=== PATIENT | male | born 1985 | race Caucasian/White ===

== ENCOUNTER 2025-02-11 20:05 | Emergency (ER) | payer BC, SELFPAY ==
[2025-02-11 20:07] VITALS: BP 185/113
[2025-02-11 20:49] LABS: % Basophils 0.3 % (0-2); % Eosinophils 1.6 % (0-6); % Immature Granulocytes 0.3 % (0-0.5); % Lymphocytes 30.3 % (20.5-51.1); % Monocytes 6.4 % (1.7-9.3); % Neutrophils 61.1 % (42.2-75.2); Absolute Eosinophils 0.2 10^3/uL (0-0.7); Absolute Monocytes 0.6 10^3/uL (0.1-0.6); Hematocrit 43.3 % (39.0-52.0); Hemoglobin 14.7 g/dL (13.0-18.0); Mean Corp Hgb Conc. 33.9 g/dL (33.0-37.0); Mean Corpuscular Hgb 29.6 pg (27.0-31.0); Mean Corpuscular Volume 87.3 fL (80.0-94.0); Mean Platelet Volume 11.8 fL (7.4-10.4); Nucleated Red Blood Cells % 0 % (-); Platelet Count 192 10^3/uL (130-400); Red Blood Cell Count 4.96 10^6/uL (4.70-6.10); Red Cell Dist. Width 13.2 % (11.5-14.5); White Blood Cell Count 9.8 10^3/uL (4.8-10.8)
[2025-02-11 21:03] LABS: ALT (SGPT) 48 U/L (0-50); AST (SGOT) 26 U/L (17-59); Albumin 4.8 g/dl (3.5-5.0); Alkaline Phosphatase 128 U/L (38-126); Blood Urea Nitrogen 17 mg/dl (9-20); Calcium 9.9 mg/dl (8.4-10.2); Carbon Dioxide 26 mmol/L (22-30); Chloride 106 mmol/L (98-107); Glucose 104 mg/dl (70-99); Potassium 4.5 mmol/L (3.5-5.1); Sodium 141 mmol/L (135-145); Total Bilirubin 0.6 mg/dl (0.2-1.3); Total Protein 7.4 g/dl (6.3-8.2); eGFR > 60.00
[2025-02-11 21:14] LABS: Troponin I < 0.012 ng/ml
[2025-02-11 22:47] VITALS: BP 165/100
--- NOTE | 2025-02-11 23:47 | ED.GENMED ---
History of Present Illness
General
Chief Complaint: Blood Pressure Problem
Source: patient
Exam Limitations: none
Time Seen by Provider: 02/11/25 23:44
Nursing documentation reviewed up to this point in time: agreed with
History of Present Illness
History of Present Illness:
This is a 39-year-old male with past medical history of GERD who presents emergency department today with concerns of high blood pressure. Patient reports that he has no history of high blood pressure and reports that his has a cuff at home
because she had history of preeclampsia. Patient reports that he was stressed at home while he was taking care of his children and states that he started develop a headache. Patient states that he normally does not get headaches and so he decided
to check his blood pressure at that time and noticed it was in the 180s systolically at home. Patient states that his blood pressure usually goes down if it is elevated but states that this time it did not go down to him. His blood pressure at
baseline is usually in the 130s systolically. He does follow with his PCP who states that he has been watching his blood pressure and they have not decided to start a medication yet. Patient states that he started to feel little bit dizzy at that
time as well and states that this episode lasted around 10 minutes and then it was gone. Currently he is asymptomatic and he just feels a bit fatigued. He denies any chest pain, does note some mild upper abdominal discomfort which he attributes to
his indigestion/GERD symptoms. He denies any weakness one-sided the body versus other, any visual changes. Any neck pain
Past History
Past History
ED Past Medical History: None
Social History
Personal: Single
Living: with family
Employment: Employed
Review of Systems
Review of Systems
All Other Systems: ROS reviewed and negative except as documented in HPI and ROS
Phy Exam
Physical Exam
Physical Exam:
General: Patient is well appearing and in no acute distress; non-toxic
Skin: Warm and dry, no rashes or lesions
Head: Normocephalic, atraumatic
Eyes: Sclera non-icteric. EOMs intact.
Cardiac: Regular rate and rhythm, no murmur
Peripheral Vascular: No lower extremity swelling or edema
Pulm: Normal respiratory effort, no wheezes, rales, or rhonchi
Abdomen: No abdominal tenderness to palpation
Neuro: CN II-XII intact, no focal neurologic deficits.
Psychiatric: Appropriate mood and affect.
Course
Orders/Labs/Results
Orders:
Orders
02/11/25 20:09
Electrocardiogram (*1) Urgent
Reason for Study: Chest Pain
02/11/25 20:10
EKG- Treatment ONCE
02/11/25 20:30
Complete Blood Count/With Diff Urgent
Comprehensive Metabolic Panel Urgent
Troponin I Urgent
Abnormal Lab Results
02/11/25
20:30
MPV 11.8 H fL
(7.4-10.4)
Glucose 104 H mg/dl
(70-99)
Alkaline Phosphatase 128 H U/L
(38-126)
02/11/25 20:30
02/11/25 20:30
Vital Signs
Blood pressure: 146/76
Initial and Last Documented VS:
Initial Vital Signs
Temp Pulse Resp BP Pulse Ox
98.4 F 95 18 185/113 97
02/11/25 20:07 02/11/25 20:07 02/11/25 20:07 02/11/25 20:07 02/11/25 20:07
Last Documented Vital Signs
Temp Pulse Resp BP Pulse Ox
98.4 F 87 16 153/86 98
02/11/25 20:07 02/12/25 00:43 02/12/25 00:43 02/12/25 00:43 02/12/25 00:43
MDM/Problems Addressed
Differential Diagnosis Includes:
essential hypertension, tension headache, migraine headache
MDM/Problems Addressed:
This is a 39-year-old male with past medical history of GERD who presents emergency department today with concerns of high blood pressure. Patient reports that he has no history of high blood pressure and reports that his has a cuff at home
because she had history of preeclampsia. Patient reports that he was stressed at home while he was taking care of his children and states that he started develop a headache. He checked his pressure and it was elevated. His symptoms have since
resolved without intervention. In the emergency department, his blood pressure came down without intervention. Patient states that his blood pressure has been elevated in the past and he is monitoring it with his primary care provider and they
have not started to start any medication yet. I discussed pros and cons of starting medication today in the ER however patient states that he is a pretty responsive primary care provider so he will call his primary later today for an appointment.
Did discuss taking a blood pressure log at home. No signs of end organ damage today on blood work, troponin undetectable, EKG normal sinus rhythm with no ischemic changes. Patient stable for discharge.
Chronic conditions affecting care:
GERD
*Pulse Oximetry
Patient hypoxic: no
*Critical Care Note
Total Time (30-74mins, 75-104mins- exclusive of procedures): Not Applicable
Data Reviewed
Review of Other/Old Records Reveals: Records (Reviewed previous ER physician documentation 12/01/2011 patient seen for foreign body sensation in eye, no hospital discharge summaries to review )
ED Attending Note
-
Portions of this chart may have been created with voice recognition software.� Occasional wrong word or��sound alike� substitutions may have occurred due to the inherent limitations of voice recognition software.
Discharge Plan
Departure
Patient Disposition: Home (Routine Discharge)
Date of Disposition: 02/12/25
Time of Disposition: 00:06
Patient with high blood pressure during this ER visit?: Yes
Condition: Good
Discharge Problem:
Essential hypertension
Instructions: High Blood Pressure (DC), BLOOD PRESSURE
Prescriptions:
No Action
sulfacetamide sodium 1 DROP drops
10 ml OP QID Qty: 1 0RF
Rx Instructions:
1-2 drops in affected eye four times a day x 5 days
Referrals:
Conner Phan, [Family Provider] -
Activity Restrictions/Additional Instructions:
Your CMP and CBC blood work are unremarkable. Your troponin cardiac enzyme is undetectable. Your EKG shows normal sinus rhythm with no concerning changes.
Please call your primary care provider to schedule a follow up appointment.
Please keep a log of your blood pressure. Please check your blood pressure once daily preferably in the morning in a quiet calm environment.
PLEASE RETURN TO EMERGENCY DEPARTMENT SHOULD YOU DEVELOP PERSISTENT HEADACHE, INTRACTABLE NAUSEA OR VOMITING, CHEST PAIN, SHORTNESS OF BREATH, WEAKNESS IN ONE-SIDED BODY VERSUS OTHER, NUMBNESS OR TINGLING, FAINTING SPELLS, OR ANY OTHER SIGNS OR
SYMPTOMS WORRISOME TO YOU.
Interventions
Interventions:
*Risk Screen - Suicide Last Done: 02/11/25 20:09
*General Assessment Last Done: 02/11/25 20:09
*Neglect/Abuse Screening Last Done: 02/11/25 20:09
*ED- Fall Risk Assessment Last Done: 02/12/25 00:47
*ED COVID-19 Vaccine History Last Done: 02/11/25 20:09
*Nursing Disposition Last Done: 02/12/25 00:47
ED- Cardiac Assessment Last Done: 02/12/25 00:46
ED- Neurological Assessment Last Done: 02/12/25 00:46
ED- Pulmonary Assessment Last Done: 02/12/25 00:46
Discharge Date and Time
Discharge Date/Time: 02/12/25 00:48
Print Language: CENTRAL AFRICAN
[2025-02-12 00:43] VITALS: BP 153/86
== END 2025-02-12 00:48 | disposition home or self-care (01) ==
LOC: EMR 20:05
PROVIDERS: Student in an Organized Health Care Education/Training Program; EMERGENCY PHYSICIAN Emergency Medicine; FAMILY PHYSICIAN Family Medicine
DX: I10 Essential (primary) hypertension (principal); R51.9 Headache, unspecified; R53.83 Other fatigue; K30 Functional dyspepsia; K21.9 Gastro-esophageal reflux disease without esophagitis; Z73.3 Stress, not elsewhere classified
CPT/HCPCS: 99283; 80053; 84484; 85025; 93005

== ENCOUNTER 2025-02-27 16:49 | Emergency (ER) | payer BC, SELFPAY ==
[2025-02-27 17:10] VITALS: BP 138/87
[2025-02-27 17:36] LABS: % Basophils 0.2 % (0-2); % Eosinophils 0.1 % (0-6); % Lymphocytes 3.8 % (20.5-51.1); % Monocytes 5.7 % (1.7-9.3); % Neutrophils 89.2 % (42.2-75.2); Absolute Immature Granulocytes 0.2 10^3/uL (0-0.05); Absolute Lymphocytes 0.6 10^3/uL (1.2-3.4); Absolute Monocytes 0.9 10^3/uL (0.1-0.6); Absolute Neutrophils 13.4 10^3/uL (1.4-6.5); Hematocrit 42.9 % (39.0-52.0); Hemoglobin 14.8 g/dL (13.0-18.0); Mean Corp Hgb Conc. 34.5 g/dL (33.0-37.0); Mean Corpuscular Hgb 29.5 pg (27.0-31.0); Mean Corpuscular Volume 85.6 fL (80.0-94.0); Mean Platelet Volume 11.3 fL (7.4-10.4); Nucleated Red Blood Cells % 0 % (-); Platelet Count 162 10^3/uL (130-400); Red Blood Cell Count 5.01 10^6/uL (4.70-6.10)
[2025-02-27 17:51] LABS: Lactic Acid 1.2 mmol/L (0.7-2.0)
[2025-02-27 17:53] LABS: ALT (SGPT) 56 U/L (0-50); AST (SGOT) 29 U/L (17-59); Albumin 4.8 g/dl (3.5-5.0); Alkaline Phosphatase 120 U/L (38-126); Blood Urea Nitrogen 16 mg/dl (9-20); Calcium 9.5 mg/dl (8.4-10.2); Carbon Dioxide 22 mmol/L (22-30); Chloride 104 mmol/L (98-107); Glucose 103 mg/dl (70-99); Sodium 138 mmol/L (135-145); Total Bilirubin 1.2 mg/dl (0.2-1.3); Total Protein 7.3 g/dl (6.3-8.2); eGFR > 60.00
== END 2025-02-27 18:50 ==
LOC: EMR 16:49
PROVIDERS: EMERGENCY PHYSICIAN Student in an Organized Health Care Education/Training Program
DX: M79.662 Pain in left lower leg (principal); R22.42 Localized swelling, mass and lump, left lower limb; R50.9 Fever, unspecified; Z53.21 Procedure and treatment not carried out due to patient leaving prior to being seen by health care provider
CPT/HCPCS: 80053; 83605; 85025; 87040

== ENCOUNTER 2025-06-10 08:38 | Inpatient (IN) | payer BC, SELFPAY ==
[2025-06-09 21:07] VITALS: BP 140/84
[2025-06-09 21:19] LABS: Hematocrit 38.7 % (39.0-52.0); Hemoglobin 12.8 g/dL (13.0-18.0); Mean Corp Hgb Conc. 33.1 g/dL (33.0-37.0); Mean Corpuscular Volume 86.2 fL (80.0-94.0); Nucleated Red Blood Cells % 0 % (-); Platelet Count 198 10^3/uL (130-400); Red Cell Dist. Width 14.1 % (11.5-14.5)
[2025-06-09 21:46] LABS: ALT (SGPT) 26 U/L (0-50); AST (SGOT) 19 U/L (17-59); Albumin 4.2 g/dl (3.5-5.0); Alkaline Phosphatase 106 U/L (38-126); Blood Urea Nitrogen 14 mg/dl (9-20); Calcium 9.3 mg/dl (8.4-10.2); Carbon Dioxide 27 mmol/L (22-30); Chloride 104 mmol/L (98-107); Glucose 112 mg/dl (70-99); Potassium 4.6 mmol/L (3.5-5.1); Sodium 138 mmol/L (135-145); Total Protein 7.2 g/dl (6.3-8.2); eGFR > 60.00
[2025-06-09 21:48] VITALS: BP 125/62; BMI 53.8
[2025-06-09] MEDS: TORADOL 15 MG IV (22:49)
[2025-06-09 22:53] VITALS: BP 129/73
[2025-06-09 23:00] VITALS: BP 142/74
[2025-06-10] VITALS (7 sets, daily range): BP systolic 119–142; BP diastolic 59–86; BMI 52.7
--- NOTE | 2025-06-10 00:49 | HPS.HSE ---
Family Physician
-
Family Physician: Conner Phan DO
Chief Complaint
-
Left lower extremity redness and swelling
History of Present Illness
This is a 40-year-old with past medical history of hypertension and obesity as well as recurrent cellulitis who presents to the emergency department with acute onset of swelling redness pain in the left lower extremity that started at around 2:30 PM
prior to coming to the emergency department.
Patient reports that he has been having recurrent cellulitis since about February of this year. He has been treated in the ED and hospital about 5 times before this episode. His last treatment was in May 22. He was treated with Rocephin and
continued on Keflex and doxycycline for a 10-day course. He said that the cellulitis did improve and his white count went down from 13-8. He said anytime he stopped his antibiotics he has recurrence of his cellulitis about 14 to 18 days later. He
states that he has been evaluated with x-rays which showed no foreign bodies and no fractures. He has had an ultrasound that was negative for DVTs in the past. He also has seen vascular surgery. Cardiac evaluation at that time was negative. He
was told he had with Lovenox insufficiency and actually had procedure for venous insufficiency. However despite the procedure patient has continued to have the recurrence of the cellulitis. He denies any history of immunosuppressive's. He denies
a childhood history of recurrent infections.
He states that he developed swelling redness that is typical for his recurrent infections. He had a fever of 103 at home. He had chills and then diaphoresis.
In the ED his temperature was down to 99.2, blood pressure was 120/60 with a pulse of 103 and was satting 98% on room air.
CBC notable for white count of 18.3, electrolytes were normal, BUN/creatinine were normal. Ultrasound was negative for DVT.
Medical History
Past Medical History
Past Medical History: Reports HTN and Psychiatric (Anxiety)
Past Surgical History: Reports Other (Vascular insufficiency surgery)
Social History
Tobacco: Non-smoker
Alcohol: None
Drug: None
Living: With Family
Family History
Family History: Not pertinent
Allergies / Home Medications
Allergies reflects when Allergies were last updated in [facility].
Home Medications with original date entered in [facility]
Allergy/Medication List:
Allergies
Allergy/AdvReac Type Severity Reaction Status Date / Time
No Known Allergies Allergy Verified 02/27/25 17:09
Home Medications
lisinopril 10 mg tablet 10 mg PO DAILY 06/09/25
buspirone 7.5 mg tablet 7.5 mg PO BID 06/10/25
Review of Systems
-
History Source: Patient
Constitutional: Reports Fever and Chills
EENT: Reports No Symptoms
Respiratory: Reports No Symptoms
Cardiac: Reports No Symptoms
Abdomen/GI: Reports No Symptoms
Musculoskeletal: Reports No Symptoms
Skin: Reports Rash
Neurological: Reports No Symptoms
Endocrine: Reports No Symptoms
Hematologic/Lymphatic: Reports No Symptoms
Psych: Reports No Symptoms
Physical Exam
Vital Signs
Vital Signs
Temp Pulse Resp BP Pulse Ox
99.2 F 103 20 122/59 98
06/09/25 21:48 06/09/25 21:48 06/09/25 21:48 06/10/25 00:05 06/10/25 00:15
Physical Exam
General: Well Developed, Well Nourished, No Apparent Distress and Chills
HEENT: NormoCephalic, Anicteric, Moist mucous membranes and Atraumatic
Respiratory: Clear
Cardiac: S1/S2 and Regular Rhythm
Breast: Deferred by me
GI: Soft, Non Tender and Normal Bowel Sounds
Rectal: Deferred by Provider
Genito-urinary: Deferred by me
Musculoskeletal: No Clubbing, No Cyanosis and Edema, Left Lower Extremity
Skin: Rash (severe erythematous rash circumferentially in the left LE from foot to the knee)
Neuro: AO x 3 and Nonfocal/grossly intact
Hematologic/Lymphatic: No Lymphadenopathy
Psych: Calm
Laboratory Results
-
06/09/25 21:12
06/09/25 21:12
Laboratory Results
Lactic Acid 1.7 mmol/L (0.7-2.0) 06/09/25 22:47
Total Bilirubin 1.1 mg/dl (0.2-1.3) 06/09/25 21:12
AST 19 U/L (17-59) 06/09/25 21:12
ALT 26 U/L (0-50) 06/09/25 21:12
Alkaline Phosphatase 106 U/L (38-126) 06/09/25 21:12
Data Reviewed
-
Ultrasound: Report Reviewed by me
Lab Data: Labs Reviewed by me
Old Records: Reviewed
Impression/Plan
-
IMPRESSION:
40-year-old with recurrent left lower extremity cellulitis, history of left lower extremity venous insufficiency for rest recently status post antibiotics with Rocephin Keflex and doxycycline from May 22, 2026. He had a fever to 103 at home.
Temperature is 99.2. Leukocytosis to 18.3. Tachycardia. Rapid spreading of the cellulitis now to above the knee posteriorly.
PLAN:
Cellulitis with rapid spread, fever and leukocytosis - SIRS w/o sepsis or shock.
- admit to med/surg observation
- blood cultures
- IV vancomycin
- mrsa swab
- elevate affected extremity
- pain control
- given recurrence with no obvious explanation, ID consulted
DVT PPX - lovenox sq
Code status - Full Code
--- NOTE | 2025-06-10 01:18 | ED.GENMED ---
History of Present Illness
General
Chief Complaint: Skin Problem
Source: patient
Exam Limitations: none
Time Seen by Provider: 06/09/25 21:54
Nursing documentation reviewed up to this point in time: agreed with
History of Present Illness
History of Present Illness:
Note:
CHIEF COMPLAINT(S)
Swelling and redness of the leg with associated pain, headache, and chills.
HISTORY OF PRESENT ILLNESS
The patient is a 40-year-old male with a history of cellulitis and lymphedema, presenting with acute swelling and redness of the left leg. He reports the onset of symptoms earlier today after returning from a weekend trip to [place]. Initially,
he attributed leg stiffness to a three-hour truck ride in traffic. The swelling, however, appeared more significant upon arriving home at approximately 1:30 PM. By the time he entered his residence, she experienced a headache and chills, with chills
beginning around 1:45 PM. The legs redness and tightness started to worsen, and he described it as feeling 'out of control.' Although the leg has a history of always being slightly discolored, the patient notes a distinct increase in severity, with
her knee area showing more pronounced symptoms by day�s end. He's regularly uses a compression sock due to lymphedema. The patient also experienced a fever at home, reportedly reaching up to 103.5�F.
Historically, she has been hospitalized for cellulitis before, and her white blood cell count has been noted to elevate during infections. Episodes of infection typically result in fever. He experienced nausea for about an hour and a half, with
indigestion and belching, which resolved without vomiting. Sharp pain was noted over his left abdomen. There was a past incident two weeks prior where a specific spot on the leg oozed clear yellowish fluid for about half an hour. He has an upcoming
appointment for physical therapy related to lymphedema management.
During the conversation, the patient also mentioned a dislike for medications and recounted that previous pain management with morphine and Toradol had minimal effects.
PHYSICAL EXAM
- Nursing notes reviewed and vital signs reviewed.
- The leg is noted to be swollen, red, and tight.
- No visible rash or breaks on the legs skin at the time of examination.
PLAN
- Initiate an intravenous line for administration of intravenous antibiotics to manage infection.
- Order an ultrasound to rule out possible deep vein thrombosis given the chronic redness and acute swelling of the leg.
- Assess the effectiveness of pain management strategies and adjust as needed.
- Patient to follow up with her physical therapy appointment for lymphedema.
DIFFERENTIAL DIAGNOSIS
The Differential Diagnosis includes, in no particular order and is not limited to:
1. Cellulitis
2. Deep vein thrombosis
3. Lymphedema
4. Venous insufficiency
5. Erysipelas
6. Phlebitis
7. Contact dermatitis
8. Thrombophlebitis
9. Chronic venous hypertension
10. Lipodermatosclerosis
Disposition:
SUMMARY OF ENCOUNTER
The patient, a 40-year-old male with a history of cellulitis, venous insufficiency, and lymphedema, presented to the emergency department with concerns of right lower extremity redness and swelling. He reports a similar feeling to previous
cellulitis episodes. He has no history of deep vein thrombosis (DVT). Symptoms included headache, nausea, and a fever of 103�F at home, for which he took acetaminophen (Tylenol). His condition necessitated hospitalization due to a high white blood
cell count, aggressive presentation of cellulitis, and systemic symptoms including fever. Treatment was initiated with the antibiotic cefazolin (Ancef).
DISPOSITION
Admit
ASSESSMENT
The patient exhibits signs indicative of cellulitis with systemic involvement, evidenced by fever and elevated white blood cell count.
EMERGENCY TREATMENTS ADMINISTERED
The patient was started on intravenous cefazolin (Ancef).
PLAN
The patient will be admitted to the hospital for further evaluation and management. Continued antibiotic treatment and monitoring for improvement or any complications will be undertaken during hospitalization.
INDEPENDENT REVIEW OF LABS AND INTERPRETATION OF TESTS
My independent review of the complete blood count (CBC) shows leukocytosis, consistent with an elevated white blood cell count indicative of infection.
MEDICAL DECISION MAKING
- Number and Complexity of Problems Addressed: Chronic conditions affecting care include cellulitis, venous insufficiency, and lymphedema. Differential diagnosis includes cellulitis, deep vein thrombosis, lymphedema, venous insufficiency,
erysipelas, phlebitis, contact dermatitis, thrombophlebitis, chronic venous hypertension, and lipodermatosclerosis.
- Data:
Category 1
My independent interpretation of laboratory data indicates an elevated white blood cell count.
- Risk:
Prescription medication in the form of intravenous antibiotics was initiated. Consideration of admission was based on the aggressive presentation and the potential for complications, ultimately resulting in the decision to admit for inpatient
management.
DIAGNOSIS
- Cellulitis, lower limb (ICD-10: L03.115)
- Lymphedema (ICD-10: I89.0)
- Venous insufficiency (chronic) (ICD-10: I87.2)
Past History
Past History
ED Past Medical History: None
Social History
Personal: Single
Living: with family
Employment: Employed
Phy Exam
General Physical Exam
General Presentation: well appearing and no apparent distress
General age: appears stated age
General Skin: warm and dry
General Habitus: normal
General Mental: alert
ENT Exam
ENT Exam: EOMI
Cardiovascular Exam
Cardiovascular Exam: regular rate/rhythm and no edema
Pulmonary Exam
Pulmonary Exam: lungs clear and no respiratory distress
Musculoskeletal Exam
Musculoskeletal Exam: full ROM
Skin Exam
Skin Exam: erythema (erythema noted from left distal calf up to left thigh with clear line of demarcation, hot to the touch, asymmetric lower ext swelling)
Psychiatric Exam
Psychiatric Exam: normal mood/affect
Course
Orders/Labs/Results
Orders:
Orders
06/09/25 21:12
CMP [Comprehensive Metabolic Panel] Urgent
Complete Blood Count/With Diff Urgent
06/09/25 22:32
US Periph Venous LOWER Ext LT Urgent
Comment:
Reason For Exam: left lower ext swelling, pain
06/09/25 22:33
Ketorolac [Toradol] 15 mg IV NOW STA
06/09/25 22:47
Lactic Acid Urgent
06/09/25 22:48
Blood Culture Q30M
[facility] Source: Blood/Venous
Specimen Description:
Blood Culture Q30M
[facility] Source: Blood/Venous
Specimen Description:
06/10/25 00:43
CeFAZolin 2 GRAM [Ancef] 2 grams in 10 ml IV NOW
06/10/25 01:12
Vancomycin [Vancocin] 2,000 mg 0.9% Sodium Chloride 500 ml [Nss] 500 ml IV NOW
06/10/25 01:17
Admit/Transfer Patient As Directed
Co-Sign Provider:
Level of Care: Observation services
Assign to:: Medical/Surgical
Physician / Group: Karol
Diagnosis: cellulitis
PRN Pain Medication Management As Directed
May give lesser potent ordered pain med per pt: Yes
preference::
Protocol:: Medication orders for pain may be administered in a
manner that supports deferring to patient preference
when the pt is:
- Requesting an ordered lesser potent pain medication.
Least to most potent pain medications are defined
as: acetaminophen < NSAID < tramadol < opioids
(morphine, oxycodone, hydromorphone).
- Requesting a lesser dose of the same medication IF
ORDERED.
- Requesting a less intrusive route of administration
if both routes are prescribed by the provider (PO <
IV).
06/10/25 01:18
Code Status As Directed
Resuscitation Status: Full Code
06/10/25 03:00
Acetaminophen [Tylenol] 650 mg PO Q4HPRN PRN
Bisacodyl [Dulcolax] 10 mg RECTAL [id number] PRN
Docusate W/Senna [Senokot-S] 1 tablet PO BIDPRN PRN
Ketorolac [Toradol] 10 mg IV Q6HPRN PRN
Ondansetron Injectable [Zofran] 4 mg IV Q6HPRN PRN
Polyethylene Glycol Powder [Miralax] 17 grams PO DAILYPRN PRN
VANCOMYCIN Pharmacy to Dose [VANCOCIN Pharmacy to Dose] 1 each Pharmacy To Prepare [Call Pharmacy To Prepare] 0 ml IV PER PROTOCOL
06/10/25 03:00
Consult Notification Routine
Specialty to Notify: Infectious Disease
INFECTIOUS DISEASE CONSULT Routine
Consulting Provider: Darlene Nathan
Was physician already notified: No
Reason for consult: recurrent LLE cellulitis x 5 in 1 yr
Activity As Directed
Activity Level: With Assistance
Elevate Extremity As Directed
Extremity:: Left Leg
Elevate with:: Pillow
Vital Signs As Directed
Frequency: Per unit guidelines
DX Deep Vein Thrombosis Video Routine
06/10/25 03:37
MRSA Screen Routine
CORE[facility] Source: Nose
Specimen Description:
06/10/25 Breakfast
Regular
At Your Request: Full Participation
Basic Metabolic Panel IN AM
Complete Blood Count/No Diff IN AM
06/10/25 08:00
Buspirone [Buspar] 7.5 mg PO BID
Lisinopril [Zestril] 10 mg PO DAILY
06/10/25 18:00
Enoxaparin Sodium [Lovenox] 40 mg SC QPM
Abnormal Lab Results
06/09/25
21:12
WBC 18.3 H 10^3/uL
(4.8-10.8)
RBC 4.49 L 10^6/uL
(4.70-6.10)
Hgb 12.8 L g/dL
(13.0-18.0)
Hct 38.7 L %
(39.0-52.0)
MPV 11.4 H fL
(7.4-10.4)
Abs Immat Gran (auto) 0.1 H 10^3/uL
(0-0.05)
Absolute Neuts (auto) 16.7 H 10^3/uL
(1.4-6.5)
Absolute Lymphs (auto) 0.8 L 10^3/uL
(1.2-3.4)
Neutrophils % 91.3 H %
(42.2-75.2)
Lymphocytes % 4.5 L %
(20.5-51.1)
Glucose 112 H mg/dl
(70-99)
06/09/25 21:12
06/09/25 21:12
Vital Signs
Initial and Last Documented VS:
Initial Vital Signs
Temp Pulse Resp BP Pulse Ox
98.5 F 107 20 140/84 97
06/09/25 21:07 06/09/25 21:07 06/09/25 21:07 06/09/25 21:07 06/09/25 21:07
Last Documented Vital Signs
Temp Pulse Resp BP Pulse Ox
98.8 F 110 20 142/82 97
06/10/25 03:40 06/10/25 03:40 06/10/25 03:40 06/10/25 03:40 06/10/25 03:40
*Pulse Oximetry
SaO2: 98
Oxygen Mode of Delivery: Room air
Patient hypoxic: no
*Critical Care Note
Total Time (30-74mins, 75-104mins- exclusive of procedures): Not Applicable
ED Attending Note
-
Portions of this chart may have been created with voice recognition software.� Occasional wrong word or��sound alike� substitutions may have occurred due to the inherent limitations of voice recognition software.
Discharge Plan
Departure
Patient Disposition: Admit
Date of Disposition: 06/10/25
Time of Disposition: 00:46
Admit to: Med/Surg
Presentation/result/management discussed w/ accepting MD/DO: Hospitalist
Patient with high blood pressure during this ER visit?: Yes
Condition: Fair
Discharge Problem:
Cellulitis
Interventions
Interventions:
*Risk Screen - Suicide Last Done: 06/09/25 21:07
*General Assessment Last Done: 06/09/25 21:07
*Neglect/Abuse Screening Last Done: 06/09/25 21:07
*ED- Fall Risk Assessment Last Done: 06/09/25 22:14
*ED COVID-19 Vaccine History Last Done: 06/09/25 22:14
*Nursing Disposition Last Done: 06/10/25 03:03
ED-Skin Assessment Last Done: 06/10/25 00:00
Discharge Date and Time
Discharge Date/Time: 06/10/25 03:04
[2025-06-10] MEDS: VANCOCIN 540 MG IV (01:41)
[2025-06-10 06:28] LABS: Hematocrit 36.4 % (39.0-52.0); Hemoglobin 12.0 g/dL (13.0-18.0); Mean Corp Hgb Conc. 33.0 g/dL (33.0-37.0); Mean Corpuscular Volume 85.8 fL (80.0-94.0); Platelet Count 161 10^3/uL (130-400); Red Cell Dist. Width 14.4 % (11.5-14.5)
[2025-06-10 06:46] LABS: Blood Urea Nitrogen 14 mg/dl (9-20); Calcium 8.6 mg/dl (8.4-10.2); Carbon Dioxide 25 mmol/L (22-30); Chloride 105 mmol/L (98-107); Estimated Creatinine Clearance > 125 ml/min; Glucose 103 mg/dl (70-99); Potassium 4.5 mmol/L (3.5-5.1); Sodium 136 mmol/L (135-145); eGFR > 60.00
--- NOTE | 2025-06-10 07:33 | W.PN.HOSP.TC ---
Today's Communication/Plan
-
cont IV abx
follow cultures
pain control
Assessment / Plan
Assessment / Plan
Physical Exam
General: No acute distress, appears comfortable. Obese
HEENT: NormoCephalic, Anicteric, Moist mucous membranes and Atraumatic
Respiratory: Clear to auscultation b/l
Cardiac: S1/S2 and Tachy
GI: Soft, Non Tender and Normal Bowel Sounds
Musculoskeletal: No Clubbing, No Cyanosis and Edema, Left Lower Extremity
Skin: Rash (severe erythematous rash circumferentially in the left LE from foot to the knee)
Neuro: AO x 3 Conversant Coherent
Psych: Calm
40M here for Sepsis (tachycardia, Leukocytosis) recurrent LLE cellulitis.
Cellulitis with rapid spread, Tachycardia and leukocytosis, Sepsis w/o shock
- med/surg admit
- follow blood cultures
- IV vancomycin
- MRSA screen
- elevate affected extremity
- pain control
- 5th episode severe Cellulitis LLE since February 2025 as per patient
- ID eval appreciated
- Venous duplex neg for DVT
- CT angio chest/abd/pelvis noted no PE, enlarged Lt iliac chain and inguinal lymph nodes possibly reactive, splenomegaly 17.2 cm, Hepatic Steatosis
Morbid Obesity
wt loss counseled
DVT PPX - lovenox sq
Code status - Full Code
I spent a total of 50 minutes with the patient or on the floor. More than 50% of this time involved counseling and coordination of care.
Anticipated Discharge: 24 - 48 hours
Subjective/Interval History
-
Date of Service: June 10, 2025
no acute distress, resting comfortably in bed. Stable respiratory status on room air. Denies chest pain palpitations. RLE erythema/tenderness persists.
Objective Data
-
Labs:
Laboratory Results
06/09/25 06/10/25
21:12 05:32
WBC 18.3 H 12.4 H
Hgb 12.8 L 12.0 L
Hct 38.7 L 36.4 L
Plt Count 198 161
Sodium 138 136
Potassium 4.6 4.5
Chloride 104 105
Carbon Dioxide 27 25
BUN 14 14
Creatinine 0.8 0.8
Glucose 112 H 103 H
Calcium 9.3 8.6
Total Bilirubin 1.1
AST 19
ALT 26
Alkaline Phosphatase 106
Vital Signs:
Vital Signs
Temp Pulse Resp BP Pulse Ox
99.6 F 113 16 119/74 95
06/10/25 07:32 06/10/25 07:32 06/10/25 07:32 06/10/25 07:32 06/10/25 07:32
[2025-06-10] MEDS: ZESTRIL 10 MG PO (08:35)
[2025-06-10] MEDS: BUSPAR 7.5 MG PO ×2 (08:35→21:06)
[2025-06-10] MEDS: TORADOL 10 MG IV ×2 (08:42→15:59)
--- NOTE | 2025-06-10 09:29 | PHA.VAN.IN ---
Addendum entered and electronically signed by Silvana De Los Santos Karuna 06/10/25 11:11:
Agree with assessment and plan below
Original Note:
Assessment
- Assessment
Renal Function: Appears similar to baseline
AUC Dosing Plan
- Dosing Variables
Dosing Weight (kg): 181
Dosing CrCl (ml/min): 125
Vd coefficient (L/kg): 0.5
- Empiric Dosing
Initial / Loading Dose: received 2000mg x1 dose at 01:41 this morning
Maintenance Regimen: 1250 Q8H
Estimated AUC (mcg*h/mL): 414
Estimated Peak (mcg*h/mL): 23.9
Estimated Trough (mcg/ml): 11.8
Estimated Half Life (H): 6.4
- Monitoring
No levels ordered at this time: consider within the next few days
Pharmacokinetics Vancomycin I
- -
Patient Age: 40
Patient Sex: Male
Vancomycin Day #: 1
Indication: Skin And Soft Tissue
Requesting Provider: Dr. Roberson
Pertinent Antimicrobial Allergies:
NKDA
Height / Weight:
Height 6 ft 1 in
Actual Weight 181.012 kg
Pertinent Past Medical History: recurrent cellulitis; BMI ~53
- Vital Signs / Lab Results
Temp Pulse Resp BP Pulse Ox
99.6 F 113 16 119/74 95
06/10/25 07:32 06/10/25 08:35 06/10/25 07:32 06/10/25 08:35 06/10/25 07:32
Lab Results - Hematology
06/09/25 06/10/25
21:12 05:32
WBC 18.3 H 12.4 H
Lab Results - Chemistry
06/09/25 06/10/25
21:12 05:32
BUN 14 14
Creatinine 0.8 0.8
Estimated Creat Clear > 125
Albumin 4.2
06/09/25
22:47
Lactic Acid 1.7
[2025-06-10] MEDS: VANCOCIN 275 MG IV ×2 (13:01→21:10)
[2025-06-10] MEDS: TYLENOL 650 MG PO ×2 (13:04→21:18)
--- NOTE | 2025-06-10 16:06 | CON.ID ---
Consultation
-
Date/Time Consultation Requested: 06/10/25
Date/Time Consultation Performed: 06/10/25
Requesting Provider: Dr Ramsey
Performing Provider: Dr Sydnie Adkins
Reason for Consultation: pain , erythema left lower leg
Chief Complaint / Past History
Chief Complaint
Patient with a history of past left lower extremity pain/swelling/erythema which has suddenly recurred causing him to seek treatment in ED
History of Present Illness
Although the patient describes improvement in his situation with the vascular surgery he states that he has had several recurring episodes of redness and swelling over ensuing months which results in similar symptoms and for which she has been
prescribed antibiotics. He states that he has also been working with his outpatient provider to lose weight and change his lifestyle and describes some success in doing this.
He is particularly upset by the most recent episode of swelling and erythema that is so bad this time that he was almost unable to weight-bear and was frightened because of the severity of the swelling, redness, and most of all the pain. The
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
The patient states that with elevation and antibiotics the redness is starting to recede as indicated by the ink markers that were placed on his leg in the emergency room. He denies any issues or problems with the right leg and on exam the leg is
not swollen, and has no erythema or pain.
Past History
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
Additional Past Medical History:
The patient first had a problem with his left lower extremity about a year and a half ago when he had an acute onset of extreme swelling involving the lower part of the thigh, the knee, the lower extremity including foot and ankle. He sought
medical attention was placed on antibiotics and was evaluated eventually by a vascular surgeon. The surgeon performed a procedure on the vessels of his leg describing to the patient that the valves in his vessels were not functioning appropriately
which resulted in this painful, erythematous, swelling. The patient states that since the procedure has been done he has had no problems until this past weekend when after a long walk on the beach and a long ride home he got out of his vehicle
noting pain, erythema, and increased swelling.
The patient states when queried that he has had procedures done on the leg in the past including bilateral ankle metal insertions to improve his gait. Well-healed scars are visible on his ankle. He states that he has had no problems with his
ankles nor with the device that was inserted in the past.
Past Surgical History: Other (vascular surgery left leg,bilateral ankle surgery)
Allergy History:
No Known Allergies Allergy (Verified 02/27/25 17:09)
Medications Reviewed: Yes
Current Antibiotics:
vancomycin
Social History
Tobacco: Non-Smoker
Alcohol: None
Drug: None
Personal:
Living: With Family
Employment: Employed
Family History
Family History: Not Pertinent
Review of Systems
Review of Systems
General: Fever and Chills
Endocrine: Other (morbid obesity BMI 52.6)
Musculoskeletal: Joint Pain (erythema left leg, swelling left leg,pain left leg) and Joint Swelling
Psychological: Other
All systems: All other systems were reviewed and were negative
Vital Signs
Temp Pulse Resp BP Pulse Ox
99 F 106 16 124/67 94
06/10/25 15:52 06/10/25 15:52 06/10/25 15:52 06/10/25 15:52 06/10/25 15:52
Physical Exam
Physical Exam
Constitutional: Well Developed, Comfortable and Obese
Head: Normocephalic
Eyes: Pupils Equal, Pupils Round, No Conjunctival Hemorrhage and Sclera Anicteric
Pharynx: Benign
Oral: No Thrush and No Ulcers
Cardiovascular: Regular Rate and Peripheral Edema
Pulmonary: Clear
Gastrointestinal: Non Tender (central adiposity)
Extremities: Edema, Erythema and Calf Swelling (left leg with erythema from distal thigh down to feet with swelling tenderness and pain without skin lesion /defect)
Skin: Warm and Dry
Wound: None
Neurological: Awake, Alert, Oriented, AO x 3, Normal Muscle Strength (gait not evaluated) and No Motor Deficits
Psychological: Calm (appropriate, conversant, interactive)
Lab / Diagnostic Study Results
06/10/25 05:32
06/10/25 05:32
Abs Immat Gran (auto) 0.1 10^3/uL (0-0.05) H 06/09/25 21:12
Absolute Neuts (auto) 16.7 10^3/uL (1.4-6.5) H 06/09/25 21:12
Absolute Lymphs (auto) 0.8 10^3/uL (1.2-3.4) L 06/09/25 21:12
Absolute Monos (auto) 0.6 10^3/uL (0.1-0.6) 06/09/25 21:12
Absolute Basos (auto) 0.0 10^3/uL (0-0.2) 06/09/25 21:12
Immature Gran % 0.4 % (0-0.5) 06/09/25 21:12
Neutrophils % 91.3 % (42.2-75.2) H 06/09/25 21:12
Lymphocytes % 4.5 % (20.5-51.1) L 06/09/25 21:12
Monocytes % 3.5 % (1.7-9.3) 06/09/25 21:12
Eosinophils % 0.1 % (0-6) 06/09/25 21:12
Basophils % 0.2 % (0-2) 06/09/25 21:12
Lactic Acid 1.7 mmol/L (0.7-2.0) 06/09/25 22:47
Microbiology Results
Micro:
06/10/25 03:37 MRSA Screen - Pending
Nose
06/09/25 22:48 Blood Culture - Pending
Blood/Venous
06/09/25 22:48 Blood Culture - Pending
Blood/Venous
Assessment / Plan
1. Patient with left lower extremity erythema, swelling,pain from lower thigh through knee,calf, ankle, foot
Patient describes past vascular procedure during which valves in veins were ' fixed' in his left leg to prevent further issues
The patient denies any injuries/ trauma to this leg
This leg has had repeated similar episodes of erythema, swelling , pain in the past
Response has occurred with antibiotic , elevation , rest
2. The right leg is normal with any issues
3. Remote bilateral devices were inserted in ankles for chronic issue which patient had difficulty describing with well healed scars and no current issues
4. Morbid obesity with PMD and patient making slow but sure progress
5. Patient with worrisome leukocytosis with WBC 18.3 with PMN 91.3% temperature 99.2 with WBC today 12.4 on Vancomycin
6. Cultures and MRSA screen ordered and pending would continue current antibiotic for now
7. US left leg without DVT,would consider vascular consultation
Care Review
Total Time Spent with Patient (in minutes): 45
[2025-06-10] MEDS: LOVENOX 40 MG SC (18:04)
[2025-06-11] MEDS: VANCOCIN 275 MG IV ×2 (05:58→13:01)
[2025-06-11 07:16] LABS: Hematocrit 38.4 % (39.0-52.0); Hemoglobin 12.3 g/dL (13.0-18.0); Mean Corp Hgb Conc. 32.0 g/dL (33.0-37.0); Mean Corpuscular Volume 87.1 fL (80.0-94.0); Platelet Count 182 10^3/uL (130-400); Red Cell Dist. Width 14.2 % (11.5-14.5)
[2025-06-11 07:45] VITALS: BP 132/83
--- NOTE | 2025-06-11 07:59 | W.PN.HOSP.TC ---
Today's Communication/Plan
-
cont IV abx
ok to shower
empiric Vancomycin switched to Ceftriaxone
Assessment / Plan
Assessment / Plan
Physical Exam
General: No acute distress, appears comfortable. Muscular appearance
HEENT: NormoCephalic, Anicteric, Moist mucous membranes and Atraumatic
Respiratory: Clear to auscultation b/l
Cardiac: S1/S2 and Tachy
GI: Soft, Non Tender and Normal Bowel Sounds
Musculoskeletal: No Clubbing, No Cyanosis and Edema, Left Lower Extremity
Skin: Rash (severe erythematous rash circumferentially in the left LE from foot to the knee)
Neuro: AO x 3 Conversant Coherent
Psych: Calm
40M here for Sepsis (tachycardia, Leukocytosis) recurrent LLE cellulitis.
Cellulitis with rapid spread, Tachycardia and leukocytosis, Sepsis w/o shock
- med/surg admit
- blood cultures NGTD
- MRSA screen neg, IV vancomycin switched to Ceftriaxone as per ID
- elevate affected extremity
- pain control
- 5th episode severe Cellulitis LLE since February 2025 as per patient
- ID eval appreciated
- Venous duplex neg for DVT
- CT angio chest/abd/pelvis noted no PE, enlarged Lt iliac chain and inguinal lymph nodes possibly reactive, splenomegaly 17.2 cm, Hepatic Steatosis
Morbid Obesity per BMI 52.6
Patient also has muscular appearance so BMI likely less accurate
wt loss counseled
DVT PPX - lovenox sq
Code status - Full Code
I spent a total of 40 minutes with the patient or on the floor. More than 50% of this time involved counseling and coordination of care.
Anticipated Discharge: 24 - 48 hours
Subjective/Interval History
-
Date of Service: June 11, 2025
No acute distress, overall reports feeling well. LLE swelling/erythema/tenderness cont to improve.
Objective Data
-
Labs:
Laboratory Results
06/11/25
06:54
WBC 9.2
Hgb 12.3 L
Hct 38.4 L
Plt Count 182
Sodium Pending
Potassium Pending
Chloride Pending
Carbon Dioxide Pending
BUN Pending
Creatinine Pending
Glucose Pending
Calcium Pending
Vital Signs:
Vital Signs
Temp Pulse Resp BP Pulse Ox
99.1 F 89 16 132/83 98
06/11/25 07:45 06/11/25 07:45 06/11/25 07:45 06/11/25 07:45 06/11/25 07:45
I&O
06/10/25 06/11/25 06/12/25
06:59 06:59 06:59
Intake Total 540 / 540 480 / 480
Output Total 275 / 275
Balance 540 / 540 205 / 205
[2025-06-11] MEDS: BUSPAR 7.5 MG PO ×2 (08:08→20:25)
[2025-06-11] MEDS: ZESTRIL 10 MG PO (08:09)
[2025-06-11 08:45] LABS: Blood Urea Nitrogen 12 mg/dl (9-20); Calcium 9.1 mg/dl (8.4-10.2); Carbon Dioxide 25 mmol/L (22-30); Chloride 108 mmol/L (98-107); Estimated Creatinine Clearance > 125 ml/min; Glucose 104 mg/dl (70-99); Magnesium 1.8 mg/dl (1.6-2.3); Potassium 4.3 mmol/L (3.5-5.1); Sodium 139 mmol/L (135-145); eGFR > 60.00
[2025-06-11 15:58] VITALS: BP 138/86
[2025-06-11] MEDS: STERILE WATER FOR INJECTION 20 ML IV (15:58)
[2025-06-11] MEDS: ROCEPHIN 2000 MG IV (15:58)
--- NOTE | 2025-06-11 16:17 | CM ---
CM met with Oni to complete IA. He lives with his and 2 young children in a 2 level home with 2 entry steps. 5+5 steps to the second level.
[employer] pt was (I) amb and adl's, working business services officer. Hx of lymphedema
Pt went on a trip with some friends and on the way home his leg became stiff, tight and painful, and as time went on he became feverish, reporting temp of 103.5. Currently receiving IV abx; blood cultures negative with elevated WBC, RBC, Hgb, Hct.
Plan: CM will continue to follow to coordinate identified discharge planning needs.
[2025-06-11] MEDS: LOVENOX 40 MG SC (17:34)
--- NOTE | 2025-06-11 18:59 | W.PN.ID1 ---
Date of Service
Date of Service: June 11, 2025
Today's Communication
discussed patient with PMD, Hospitalist
Assessment / Plan
1. Patient with left lower extremity erythema, swelling,pain from lower thigh through knee,calf, ankle, foot slowly improving
Patient describes past vascular procedure during which valves in veins were ' fixed' in his left leg to prevent further issues and he plans to call his surgeon today for appointment next week for follow up
The patient denies any injuries/ trauma to this leg
This leg has had repeated similar episodes of erythema, swelling , pain in the past
Response has occurred with antibiotic , elevation , rest
2. The right leg is normal with any issues
3. Remote bilateral devices were inserted in ankles for chronic issue which patient had difficulty describing with well healed scars and no current issues
4. Morbid obesity with PMD and patient making slow but sure progress with weight loss of 32# so far this year with goal of 50# by November 06
5. Patient with improved leukocytosis and afebrile
6. No MRSA with Ceftriaxone 2 Gm Q 24 H until discharge on with oral antibiotic for 14 days Keflex 500 mg po Q 6 H
Chief Complaint
-: Fever, Leukocytosis and Cellulitis
Subjective / Review of Systems
Review of Systems: No Fever, No Chills, No Headache, No Pharyngitis, No Stiff Neck, No Swollen Lymph Nodes, No Cough, No Sputum Production, No Chest Pain, No Palpitations, No Abdominal Pain, No Nausea, No Vomiting, No Diarrhea, No Dysuria and Skin
Rash (improving with area above knee mostly resolved with lower leg still quite erythmatous )
Vital Signs / Physical Exam
Vital Signs
Vital Signs
Temp Pulse Resp BP Pulse Ox
98.7 F 87 14 138/86 96
06/11/25 15:58 06/11/25 15:58 06/11/25 15:58 06/11/25 15:58 06/11/25 15:58
Physical Exam
Constitutional: No Acute Distress, Well Developed, Comfortable, Non-toxic and Obese
Head: Normocephalic
Eyes: Pupils Equal, Pupils Round and Sclera Anicteric
Oropharyngeal: Benign
Cardiovascular: Regular Rate
Pulmonary: Clear
Gastrointestinal: Soft, Non Tender, Non Distended, Normal Bowel Sounds, No Rebound and No Guarding
Genito-Urinary: Clear Urine
Extremities: Edema, Erythema and Calf Swelling (slow improvement)
Skin: Warm and Dry
Wound: None
Neurological: Awake, Alert, Oriented and AO x 3 (left leg elevated)
Psychological: Calm (cooperative and appropriate)
Objective Data
Lab Data
Lab Results
06/11/25 06:54
06/11/25 06:54
Estimated Creat Clear > 125 ml/min 06/11/25 06:54
Lactic Acid 1.7 mmol/L (0.7-2.0) 06/09/25 22:47
Total Bilirubin 1.1 mg/dl (0.2-1.3) 06/09/25 21:12
AST 19 U/L (17-59) 06/09/25 21:12
ALT 26 U/L (0-50) 06/09/25 21:12
Alkaline Phosphatase 106 U/L (38-126) 06/09/25 21:12
Most recent labs reviewed.
Microbiology: Report Reviewed
Micro Results:
06/10/25 03:37 MRSA Screen - Final
Nose No Methicillin Resistant Staphylococcus aureus isolated.
06/09/25 22:48 Blood Culture - Preliminary
Blood/Venous No Growth in 24 hours- Final report to follow
06/09/25 22:48 Blood Culture - Preliminary
Blood/Venous No Growth in 24 hours- Final report to follow
Chest X-Ray: Report Reviewed
CT Scan: Report Reviewed
Care Review
Plan reviewed with: Physician (PMD, Hospitalist)
Total Time Spent with Patient (in minutes): 45
[2025-06-11 23:00] VITALS: BP 131/71
[2025-06-11] MEDS: TYLENOL 650 MG PO (23:36)
[2025-06-12 06:55] LABS: Hematocrit 35.8 % (39.0-52.0); Hemoglobin 11.7 g/dL (13.0-18.0); Mean Corp Hgb Conc. 32.7 g/dL (33.0-37.0); Mean Corpuscular Volume 86.9 fL (80.0-94.0); Platelet Count 178 10^3/uL (130-400); Red Cell Dist. Width 14.2 % (11.5-14.5)
[2025-06-12 07:25] LABS: Blood Urea Nitrogen 11 mg/dl (9-20); Calcium 9.2 mg/dl (8.4-10.2); Carbon Dioxide 26 mmol/L (22-30); Chloride 108 mmol/L (98-107); Estimated Creatinine Clearance > 125 ml/min; Glucose 106 mg/dl (70-99); Magnesium 1.9 mg/dl (1.6-2.3); Potassium 4.7 mmol/L (3.5-5.1); Sodium 140 mmol/L (135-145); eGFR > 60.00
--- NOTE | 2025-06-12 07:34 | W.PN.HOSP.TC ---
Today's Communication/Plan
-
cont IV abx
likely discharge tomorrow
Assessment / Plan
Assessment / Plan
Physical Exam
General: No acute distress, appears comfortable. Muscular appearance
HEENT: NormoCephalic, Anicteric, Moist mucous membranes and Atraumatic
Respiratory: Clear to auscultation b/l
Cardiac: S1/S2 and Tachy
GI: Soft, Non Tender and Normal Bowel Sounds
Musculoskeletal: No Clubbing, No Cyanosis and Edema, Left Lower Extremity
Skin: Erythema LLE improving
Neuro: AO x 3 Conversant Coherent
Psych: Calm
40M here for Sepsis (tachycardia, Leukocytosis) recurrent LLE cellulitis.
Cellulitis with rapid spread, Tachycardia and leukocytosis, Sepsis w/o shock
- med/surg admit
- blood cultures NGTD
- MRSA screen neg, IV vancomycin switched to Ceftriaxone as per ID
- elevate affected extremity
- pain control
- 5th episode severe Cellulitis LLE since February 2025 as per patient
- ID eval appreciated
- Venous duplex neg for DVT
- CT angio chest/abd/pelvis noted no PE, enlarged Lt iliac chain and inguinal lymph nodes possibly reactive, splenomegaly 17.2 cm, Hepatic Steatosis
Morbid Obesity per BMI 52.6
Patient also has muscular appearance so BMI likely less accurate
wt loss counseled
DVT PPX - lovenox sq
Code status - Full Code
I spent a total of 35 minutes with the patient or on the floor. More than 50% of this time involved counseling and coordination of care.
Anticipated Discharge: Within 24 hours
Subjective/Interval History
-
Date of Service: June 12, 2025
No acute distress, ambulating without need for assist device, LLE erythema continues to improved. Overall reports feeling well. Denies new acute issues at this time.
Objective Data
-
Labs:
Laboratory Results
06/12/25
06:23
WBC 6.8
Hgb 11.7 L
Hct 35.8 L
Plt Count 178
Sodium 140
Potassium 4.7
Chloride 108 H
Carbon Dioxide 26
BUN 11
Creatinine 0.8
Glucose 106 H
Calcium 9.2
Vital Signs:
Vital Signs
Temp Pulse Resp BP Pulse Ox
98.4 F 83 16 131/71 99
06/11/25 23:00 06/11/25 23:00 06/11/25 23:00 06/11/25 23:00 06/11/25 23:00
I&O
06/11/25 06/12/25 06/13/25
06:59 06:59 06:59
Intake Total 540 / 540 1080 / 1080 1440 / 1440
Output Total 875 / 875
Balance 540 / 540 205 / 205 1440 / 1440
[2025-06-12] MEDS: BUSPAR 7.5 MG PO ×2 (08:36→20:03)
[2025-06-12] MEDS: ZESTRIL 10 MG PO (08:37)
[2025-06-12 08:38] VITALS: BP 138/91
[2025-06-12] MEDS: STERILE WATER FOR INJECTION 20 ML IV (15:20)
[2025-06-12] MEDS: ROCEPHIN 2000 MG IV (15:20)
[2025-06-12 16:00] VITALS: BP 147/79
--- NOTE | 2025-06-12 16:17 | W.PN.ID1 ---
Date of Service
Date of Service: June 12, 2025
Today's Communication
discussion with patient
will sign off at this time
Thank you for calling ID consultation
Assessment / Plan
1. Patient with left lower extremity erythema, swelling,pain from lower thigh through knee,calf, ankle, foot improved
Patient describes past vascular procedure during which valves in veins were ' fixed' in his left leg to prevent further issues and he plans to see his surgeon MOISES for appointment and for follow up
The patient denies any injuries/ trauma to this leg
This leg has had repeated similar episodes of erythema, swelling , pain in the past
Response has occurred with antibiotic , elevation , rest
2. The right leg is normal with any issues
3. Remote bilateral devices were inserted in ankles for chronic issue which patient had difficulty describing with well healed scars and no current issues
4. Morbid obesity with PMD and patient making slow but sure progress with weight loss of 32# so far this year with goal of 50# by November 06
5. Patient with improved leukocytosis and afebrile
6. No MRSA with Ceftriaxone 2 Gm Q 24 H with last dose in AM ( OK if given early tomorrow as long as it is more than 12 hours since previous dose )
7. Per discussion with hospitalist march/ tomorrow on oral Keflex 500 mg po Q 6 hr for 14 days
Chief Complaint
-: Fever, Leukocytosis and Cellulitis
Subjective / Review of Systems
Review of Systems: No Fever, No Chills, No Headache, No Pharyngitis, No Stiff Neck, No Swollen Lymph Nodes, No Cough, No Sputum Production, No Chest Pain, No Palpitations, No Abdominal Pain, No Nausea, No Vomiting, No Diarrhea and No Dysuria (left
leg continues to improve with continued swelling with areas of induration but with continued fading of erythema and pain. When compared to right leg ,the left leg continued to appear significantly more edematous but is generally greatly improved
since admission and antibiotic. )
Vital Signs / Physical Exam
Vital Signs
Vital Signs
Temp Pulse Resp BP Pulse Ox
98.4 F 89 16 147/79 99
06/12/25 16:00 06/12/25 16:00 06/12/25 16:00 06/12/25 16:00 06/12/25 16:00
Physical Exam
Constitutional: No Acute Distress, Well Developed, Comfortable, Non-toxic and Obese
Head: Normocephalic
Eyes: Pupils Equal, Pupils Round, No Conjunctival Hemorrhage and Sclera Anicteric
Oropharyngeal: Benign
Cardiovascular: Regular Rate
Pulmonary: Clear and Non Labored
Gastrointestinal: Soft, Non Tender and Normal Bowel Sounds (central adiposity)
Extremities: Edema, Erythema and Calf Swelling
Musculoskeletal: Joint Swelling
Skin: Warm and Dry (decreased left leg erythema)
Wound: None
Neurological: Awake, Alert, Oriented, AO x 3 and Normal Muscle Strength
Psychological: Calm (pleasant ,conversant, cooperative, appropriate)
Objective Data
Lab Data
Lab Results
06/12/25 06:23
06/12/25 06:23
Estimated Creat Clear > 125 ml/min 06/12/25 06:23
Lactic Acid 1.7 mmol/L (0.7-2.0) 06/09/25 22:47
Total Bilirubin 1.1 mg/dl (0.2-1.3) 06/09/25 21:12
AST 19 U/L (17-59) 06/09/25 21:12
ALT 26 U/L (0-50) 06/09/25 21:12
Alkaline Phosphatase 106 U/L (38-126) 06/09/25 21:12
Most recent labs reviewed.
Micro Results:
06/09/25 22:48 Blood Culture - Preliminary
Blood/Venous No Growth in 48 hours- Final report to follow
06/09/25 22:48 Blood Culture - Preliminary
Blood/Venous No Growth in 48 hours- Final report to follow
06/10/25 03:37 MRSA Screen - Final
Nose No Methicillin Resistant Staphylococcus aureus isolated.
Care Review
Total Time Spent with Patient (in minutes): 35
[2025-06-12] MEDS: LOVENOX 40 MG SC (17:33)
[2025-06-12] MEDS: TYLENOL 650 MG PO (20:20)
[2025-06-12 23:38] VITALS: BP 134/84
--- NOTE | 2025-06-13 07:29 | W.PN.HOSP.TC ---
Today's Communication/Plan
-
discharge
Assessment / Plan
Assessment / Plan
Physical Exam
General: No acute distress, appears comfortable. Muscular appearance
HEENT: NormoCephalic, Anicteric, Moist mucous membranes and Atraumatic
Respiratory: Clear to auscultation b/l
Cardiac: S1/S2 and Tachy
GI: Soft, Non Tender and Normal Bowel Sounds
Musculoskeletal: No Clubbing, No Cyanosis and Edema, Left Lower Extremity
Skin: Erythema LLE improving
Neuro: AO x 3 Conversant Coherent
Psych: Calm
40M here for Sepsis (tachycardia, Leukocytosis) recurrent LLE cellulitis.
Cellulitis with rapid spread, Tachycardia and leukocytosis, Sepsis w/o shock
- med/surg admit
- blood cultures NGTD
- MRSA screen neg, IV vancomycin switched to Ceftriaxone as per ID
- elevate affected extremity
- pain control
- 5th episode severe Cellulitis LLE since February 2025 as per patient
- ID eval appreciated dc on oral keflex 500 mg Q6H for 14 days.
- Venous duplex neg for DVT
- CT angio chest/abd/pelvis noted no PE, enlarged Lt iliac chain and inguinal lymph nodes possibly reactive, splenomegaly 17.2 cm, Hepatic Steatosis
-Tachycardia and leukocytosis resolved.
Morbid Obesity per BMI 52.6
Patient also has muscular appearance so BMI likely less accurate
wt loss counseled
DVT PPX - lovenox sq
Code status - Full Code
Medically stable for discharge home with outpatient follow up recommendations.
Total Time Preparing Discharge __40 minutes including examination of the patient, summary of the hospital stay, instructions for continuing care to all relevant caregivers; and preparation of discharge records, prescriptions, and referral
forms if necessary.
Anticipated Discharge: Today
Subjective/Interval History
-
Date of Service: June 13, 2025
No acute distress. Overall reports feeling well. LLE erythema swelling continues to improve. Denies new acute issues. eager to go home.
Objective Data
-
Vital Signs:
Vital Signs
Temp Pulse Resp BP Pulse Ox
98.6 F 79 16 134/84 99
06/12/25 23:38 06/12/25 23:38 06/12/25 23:38 06/12/25 23:38 06/12/25 23:38
I&O
06/12/25 06/13/25 06/14/25
06:59 06:59 06:59
Intake Total 1080 / 1080 1440 / 1440
Output Total 875 / 875
Balance 205 / 205 1440 / 1440
[2025-06-13] MEDS: ZESTRIL 10 MG PO (07:35)
[2025-06-13] MEDS: BUSPAR 7.5 MG PO (07:35)
[2025-06-13 07:37] VITALS: BP 144/86
[2025-06-13] MEDS: ROCEPHIN 2000 MG IV (08:14)
[2025-06-13] MEDS: STERILE WATER FOR INJECTION 20 ML IV (08:14)
--- NOTE | 2025-06-13 11:04 | W.DCSUMMARY ---
Discharge Summary
Discharge Data
Date of Admission: 06/10/25
Date of Discharge: 06/13/25
-
Pending Results: Yes
Additional Pending Results:
official culture results
Hospital Course
40M here for Sepsis (tachycardia, Leukocytosis) recurrent LLE cellulitis. Cellulitis with rapid spread, Tachycardia and leukocytosis, Sepsis w/o shock, med/surg admit. Blood cultures NGTD, MRSA screen neg, IV vancomycin switched to Ceftriaxone as
per ID. Elevate affected extremity. Pain control. 5th episode severe Cellulitis LLE since February 2025 as per patient. ID eval appreciated dc on oral keflex 500 mg Q6H for 14 days. Venous duplex neg for DVT. CT angio chest/abd/pelvis noted no
PE, enlarged Lt iliac chain and inguinal lymph nodes possibly reactive, splenomegaly 17.2 cm, Hepatic Steatosis. Tachycardia and leukocytosis resolved. Morbid Obesity per BMI 52.6. Patient also has muscular appearance/build so BMI likely less
accurate. Wt loss counseled. Following clinical improvement with IV abx, medically stable, patient was discharged home on oral abx with outpatient follow up recommendations.
Discharge Plan
-
Patient Disposition: Home (Routine Discharge)
Discharge Diagnosis/Procedures: Recurrent Left Lower Extremity Cellulitis
Fatty Liver Disease
Splenomegaly
Lymphadenopathy (as noted on CT, left iliac chain and left inguinal lymph nodes enlarged likely secondary to infection as above)
Condition: Good
Diet: Low Fat
Activity: As tolerated
Driving Restrictions: As prior to admission
Bathing Restrictions: None
Blood Work: Repeat CBC with primary care provider in 1 month of discharge
Others Tests: obtain CT abd/pelvis (with contrast) with primary care provider in 1 month of discharge to follow up Splenomegaly and Lymphadenopathy
Activity Restrictions/Additional Instructions:
Follow up primary care provider in 1 week of discharge, keep your appointment with vascular specialist, and follow up with Infectious Disease in 2 weeks of discharge
Keflex 500 mg four times a day, 14 days, has been prescribed for left lower extremity cellulitis. Next dose is due the day after discharge as you have received IV antibiotics that covers you for 24 hours.
Please take medications as prescribed/recommended and follow up with primary care provider and/or other healthcare provider involved in your care for further adjustments to your medication regimen as necessary.
Referrals:
Conner Phan DO [Family Provider, Family Practice] - in two weeks
Ryan Manzano DO [Active, Infectious Diseases] - in two weeks
Prescriptions:
New
cephalexin 500 mg Capsule
500 mg PO Q6 14 Days Qty: 56 0RF
Continued
lisinopril 10 mg Tablet
10 mg PO DAILY
buspirone 7.5 mg Tablet
7.5 mg PO BID
Discharge Orders:
Discharge Patient (As Directed); Ordered 06/13/25
Ordered By: Rios Beck
Discharge Date and Time
Discharge Date/Time: 06/13/25 11:42
Print Language: OCCITAN
[2025-06-13 11:26] VITALS: BP 121/86
== END 2025-06-13 11:42 | disposition home or self-care (01) | DRG 872 ==
LOC: 3 WEST ACU 08:38
PROVIDERS: Physician Assistant; ADMITTING PHYSICIAN Internal Medicine; ATTENDING PHYSICIAN Internal Medicine; EMERGENCY PHYSICIAN Emergency Medicine; FAMILY PHYSICIAN Family Medicine; OTHER PHYSICIAN Hospitalist
PROC: 5A09357 Assistance with Respiratory Ventilation, Less than 24 Consecutive Hours, Continuous Positive Airway Pressure (ICD-10-PCS; 2025-06-10)
DX: A41.9 Sepsis, unspecified organism (principal); L03.116 Cellulitis of left lower limb; Z68.43 Body mass index [BMI] 50.0-59.9, adult; I89.0 Lymphedema, not elsewhere classified; I87.2 Venous insufficiency (chronic) (peripheral); I10 Essential (primary) hypertension; E66.01 Morbid (severe) obesity due to excess calories; F41.9 Anxiety disorder, unspecified; K76.0 Fatty (change of) liver, not elsewhere classified; R16.1 Splenomegaly, not elsewhere classified
CPT/HCPCS: 71275; 74174; 80048; 80053; 83605; 83735; 84100; 85025; 85027; 87040; 87070; 93005; 93971; 96374; 99285; Q9967

== ENCOUNTER 2025-06-25 09:42 | Outpatient (RCR) | payer BC, SELFPAY | END 2025-06-25 23:59 | disposition home or self-care (01) | LOC: RPT 09:42 | PROVIDERS: ATTENDING PHYSICIAN Family Medicine | DX: R22.42 Localized swelling, mass and lump, left lower limb (principal); I89.0 Lymphedema, not elsewhere classified; Z73.6 Limitation of activities due to disability | CPT/HCPCS: 97140; 97163; 97530 ==

== ENCOUNTER 2025-07-30 14:32 | Outpatient (RCR) | payer BC, SELFPAY | END 2025-07-30 23:59 | disposition home or self-care (01) | LOC: RPT 14:32 | PROVIDERS: ATTENDING PHYSICIAN Family Medicine | DX: R22.42 Localized swelling, mass and lump, left lower limb (principal); I89.0 Lymphedema, not elsewhere classified; Z73.6 Limitation of activities due to disability | CPT/HCPCS: 97110; 97140; 97530 ==

== ENCOUNTER 2025-08-14 17:58 | Outpatient (RCR) | payer BC, SELFPAY | END 2025-08-14 23:59 | disposition home or self-care (01) | LOC: RPT 17:58 | PROVIDERS: ATTENDING PHYSICIAN Family Medicine | DX: R22.42 Localized swelling, mass and lump, left lower limb (principal); I89.0 Lymphedema, not elsewhere classified; Z73.6 Limitation of activities due to disability | CPT/HCPCS: 97140; 97530 ==

== ENCOUNTER 2025-10-01 11:46 | Outpatient (RCR) | payer BC, SELFPAY | END 2025-10-01 23:59 | disposition home or self-care (01) | LOC: RPT 11:46 | PROVIDERS: ATTENDING PHYSICIAN Family Medicine | DX: R22.42 Localized swelling, mass and lump, left lower limb (principal); I89.0 Lymphedema, not elsewhere classified; Z73.6 Limitation of activities due to disability | CPT/HCPCS: 97110; 97140; 97530 ==

== ENCOUNTER 2025-10-08 17:14 | Outpatient (RCR) | payer BC, SELFPAY | END 2025-11-05 23:59 | disposition home or self-care (01) | LOC: RPT 17:14 | PROVIDERS: ATTENDING PHYSICIAN Family Medicine | DX: R22.42 Localized swelling, mass and lump, left lower limb (principal); I89.0 Lymphedema, not elsewhere classified; Z73.6 Limitation of activities due to disability | CPT/HCPCS: 97110; 97140 ==